=== PATIENT | female | born 1940 | race Caucasian/White ===

== ENCOUNTER 2017-11-13 06:13 | Emergency (ER) | payer OTHER, MEDICARE ==
[2017-11-13 06:20] VITALS: TEMP 98.5; BMI 33.9
[2017-11-13] MEDS ORDERED: methylPREDNISolone NA SUCC 125 MG/2 ML VIAL IVPUSH ONE (06:21)
--- NOTE | 2017-11-13 06:21 | PDOC ---
History of Present Illness - General Chief Complaint: Allergic Reaction Stated Complaint: LIP SWELLING Time Seen by Provider: 11/13/17 06:17 History Source: Patient Exam Limitations: No Limitations - History of Present Illness Initial Comments: 11/13/17 06:24 This is a 77-year-old female comes in with her for evaluation of lip swelling. Patient has an ALLERGY to aspirin and said that she took an Aleve prior to going to bed last night. Patient said that she woke up this morning with her lips significantly swollen. Patient denies any swelling to her tongue. Patient denies any sensation of her throat closing. Patient denies any shortness of breath, abdominal pain rashes or itching. PAST MEDICAL HISTORY: no significant history PAST SURGICAL HISTORY: no significant history FAMILY HISTORY: no pertinant history SOCIAL HISTORY: Pt lives with family and is employed. MEDICATIONS: reviewed ALLERGIES: As per nursing notes Review of Systems General: No fevers or chills, no weakness, no weight loss HEENT: No change in vision. No sore throat,. No ear pain, angioedema of lips CardioVascular: No chest pain or shortness of breath Respiratory:No cough, or wheezing. Gastrointestinal: no nausea, vomitting, diarrhea or constipation, No rectal bleeding Genitourinary: No dysuria, hematuria, or frequency Musculoskeletal: No joint or muscle pain or swelling Neurologic: No headache, vertigo, dizziness or loss of consciousness Psychiatric: nor depression Skin: No rashes or easy bruising Endocrine: no increased thirst or abnormal weight change Allergic: no skin or latex allergy All other systems reviewed and normal Exam: General: Well-nourished well-developed individual, no acute distress HEENT: Throat: Normal, tonsils normal, no erythema or exudate, there is marked angioedema of the lips but no angioedema of the tongue or oropharynx. Neck: Supple, no meningeal signs, no lymphadenopathy Eyes::Pupils equal reactive and round, extraocular motion intact Chest: Nontender to palpation Cardiac: S1-S2 normal, regular rate and rhythm, no murmurs rubs or gallops Respiratory: Lungs clear to auscultation bilateral Abdomen: Soft, nondistended, normal bowel sounds, nontender to palpation diffusely Extremities: Warm, dry, no cyanosis, clubbing, or edema Skin: No rashes Neuro: Alert and oriented x3, CN II - XII intact, nonfocal exam with normal strength, normal sensation, normal reflexes, normal gait, Psych: Normal mood and affect Medical decision making this is a 77-year-old female with angioedema of the lips but does not involve tongue or oropharynx. Patient given Solu-Medrol and Benadryl. Will observe patient to make sure there is no progression and discharge once improved. 07:00 Care of this patient was transferred to Dr. Sinha at 7 AM Case discussed in detail with oncoming Emergency Physician including history, physical exam and ancillary studies. Oncoming Emergency Physician has assumed care for the patient and will complete the evaluation and treatment. Patient is aware of the plan. Pt is clinically unchanged and stable. Past History - Past Medical History Allergies/Adverse Reactions: Allergies Allergy/AdvReac Type Severity Reaction Status Date / Time aspirin Allergy Severe Difficulty Verified 03/30/13 17:38 Breathing Home Medications: Ambulatory Orders Levothyroxine [Synthroid] 88 mcg PO DAILY 03/30/13 Trazodone HCl 100 mg PO HS 03/30/13 Tamoxifen Citrate 20 mg PO tablet 01/08/15 Bupropion HCl [Wellbutrin Xl -] 150 mg PO DAILY 11/13/17 Solifenacin Succinate [Vesicare -] 5 mg PO DAILY 11/13/17 Cancer: Yes (BILATERAL BREASTS) Thyroid Disease: Yes - Suicide/Smoking/Psychosocial Hx Smoking Status: No Smoking History: Never smoked Number of Cigarettes Smoked Daily: 0 *DC/Admit/Observation/Transfer Diagnosis at time of Disposition: Angioedema Qualifiers: Encounter type: initial encounter Qualified Code(s): T78.3XXA - Angioneurotic edema, initial encounter - Discharge Dispostion Condition at time of disposition: Stable - Referrals Referrals: Juan Jose Wilson [Primary Care Provider] - - Patient Instructions - Post Discharge Activity
--- NOTE | 2017-11-13 07:16 | PDOC ---
*Physical Exam - Vital Signs Last Vital Signs Temp Pulse Resp BP Pulse Ox 98.5 F 73 16 155/66 98 11/13/17 06:17 11/13/17 06:17 11/13/17 06:17 11/13/17 06:17 11/13/17 06:17 ED Treatment Course - Medications Given in the ED: ED Medications Discontinued Medications Generic Name Dose Route Start Last Admin Trade Name Madai PRN Reason Stop Dose Admin Diphenhydramine HCl 50 mg 11/13/17 06:21 11/13/17 06:31 Benadryl Injection - IVPUSH 11/13/17 06:22 50 mg ONCE ONE Administration Methylprednisolone Sodium Succinate 125 mg 11/13/17 06:21 11/13/17 06:31 Solu-Medrol - IVPUSH 11/13/17 06:22 125 mg ONCE ONE Administration Medical Decision Making - Medical Decision Making 11/13/17 08:21 Assumed care of patient at 7am shift change. She presented with angioedema, unclear etiology, no prior similar symptoms. She has aspirin allergy, took an NSAID, however, she has taken them without a reaction in the past. She has upper and lower lip swelling, unchanged from 7am. No airway compromise. Will cont to monitor. 11/13/17 10:22 Pt reassessed. Some improvement noted in the lips. No airway involvement. Stable for DC home. F/u with PMD. *DC/Admit/Observation/Transfer Diagnosis at time of Disposition: Angioedema Qualifiers: Encounter type: initial encounter Qualified Code(s): T78.3XXA - Angioneurotic edema, initial encounter - Discharge Dispostion Disposition: HOME Condition at time of disposition: Improved Admit: No - Referrals Referrals: Juan Jose Wilson [Primary Care Provider] - - Patient Instructions - Post Discharge Activity
[2017-11-13 09:47] VITALS: BP 167/95; PULSE 86
== END 2017-11-13 10:40 | disposition home or self-care (01) ==
LOC: FER 06:13
PROC: 3E0333Z Introduction of Anti-inflammatory into Peripheral Vein, Percutaneous Approach (ICD-10-PCS; principal; 2017-11-13)
PROC: 3E033GC Introduction of Other Therapeutic Substance into Peripheral Vein, Percutaneous Approach (ICD-10-PCS; 2017-11-13)
DX: T78.3XXA Angioneurotic edema, initial encounter (principal)
CPT/HCPCS: 96374; 96375; 99282-25

== ENCOUNTER 2017-11-26 06:25 | Emergency (ER) | payer OTHER, MEDICARE ==
[2017-11-26 06:34] VITALS: PULSE 76; TEMP 98.4; BMI 34.3
--- NOTE | 2017-11-26 07:08 | PDOC ---
History of Present Illness - General Chief Complaint: Chest Pain Stated Complaint: CHEST/ABD PAIN Time Seen by Provider: 11/26/17 06:49 History Source: Patient Exam Limitations: No Limitations - History of Present Illness Initial Comments: 11/26/17 06:55 This is a 77-year-old female with history of high cholesterol, hypothyroid, depression who woke up this morning approximately 5 AM with substernal chest pain with radiation to the right. Patient denied any associated symptoms of nausea, diaphoresis, shortness of breath. Patient said the pain persisted for about an hour so she took a Zantac without relief and came into the emergency room. Patient said that on her way to the emergency room that the pain did improve. Patient said that the pain is almost completely resolved. Patient denies any cardiac risk factors other than the high cholesterol and a father who had cardiac disease. Patient said she has never been told she has coronary artery disease. Patient was never smoker. PAST MEDICAL HISTORY: no significant history PAST SURGICAL HISTORY: no significant history FAMILY HISTORY: no pertinant history SOCIAL HISTORY: Pt lives with family and is employed. MEDICATIONS: reviewed ALLERGIES: As per nursing notes Review of Systems General: No fevers or chills, no weakness, no weight loss HEENT: No change in vision. No sore throat,. No ear pain CardioVascular: + chest pain, no shortness of breath Respiratory:No cough, or wheezing. Gastrointestinal: no nausea, vomitting, diarrhea or constipation, No rectal bleeding Genitourinary: No dysuria, hematuria, or frequency Musculoskeletal: No joint or muscle pain or swelling Neurologic: No headache, vertigo, dizziness or loss of consciousness Psychiatric: nor depression Skin: No rashes or easy bruising Endocrine: no increased thirst or abnormal weight change Allergic: no skin or latex allergy All other systems reviewed and normal Exam: General: Well-nourished well-developed individual, no acute distress HEENT: Throat: Normal, tonsils normal, no erythema or exudate Neck: Supple, no meningeal signs, no lymphadenopathy Eyes::Pupils equal reactive and round, extraocular motion intact Chest: Nontender to palpation Cardiac: S1-S2 normal, regular rate and rhythm, no murmurs rubs or gallops Respiratory: Lungs clear to auscultation bilateral Abdomen: Soft, nondistended, normal bowel sounds, nontender to palpation diffusely Extremities: Warm, dry, no cyanosis, clubbing, or edema Skin: No rashes Neuro: Alert and oriented x3, CN II - XII intact, nonfocal exam with normal strength, normal sensation, normal reflexes, normal gait, Psych: Normal mood and affect 11/26/17 07:00 Care of this patient transferred to Dr. Burns at 7 AM Case discussed in detail with oncoming Emergency Physician including history, physical exam and ancillary studies. Oncoming Emergency Physician has assumed care for the patient and will complete the evaluation and treatment. Patient is aware of the plan. Pt is clinically unchanged and stable. Past History - Past Medical History Allergies/Adverse Reactions: Allergies Allergy/AdvReac Type Severity Reaction Status Date / Time aspirin Allergy Severe Difficulty Verified 03/30/13 17:38 Breathing Home Medications: Ambulatory Orders Levothyroxine [Synthroid -] 88 mcg PO DAILY 03/30/13 Trazodone HCl 100 mg PO HS 03/30/13 Tamoxifen Citrate 20 mg PO DAILY tablet 01/08/15 Bupropion HCl [Wellbutrin Xl -] 150 mg PO DAILY 11/13/17 Solifenacin Succinate [Vesicare -] 5 mg PO DAILY 11/13/17 Desvenlafaxine Succinate [Pristiq] 50 mg PO DAILY 11/26/17 Rosuvastatin Calcium [Crestor] 5 mg PO DAILY 11/26/17 Cancer: Yes (BILATERAL BREASTS) COPD: No GI Disorders: Yes (GERD) Hypercholesterolemia: Yes Psychiatric Problems: Yes Thyroid Disease: Yes - Suicide/Smoking/Psychosocial Hx Smoking Status: No Smoking History: Never smoked Number of Cigarettes Smoked Daily: 0 *Physical Exam - Vital Signs Last Vital Signs Temp Pulse Resp BP Pulse Ox 98.4 F 76 16 155/56 98 11/26/17 06:30 11/26/17 06:30 11/26/17 06:30 11/26/17 07:23 11/26/17 06:30 ED Treatment Course - LABORATORY CBC & Chemistry Diagram: 11/26/17 07:14 11/26/17 07:14 - ADDITIONAL ORDERS Additional order review: 11/26/17 07:14 RBC 4.23 MCV 90.4 MCHC 34.9 RDW 12.4 MPV 8.8 Neutrophils % 67.6 Lymphocytes % 20.0 Monocytes % 9.8 Eosinophils % 1.9 Basophils % 0.7 - RADIOLOGY Radiology Studies Ordered: Category Date Time Status CHEST X-RAY PORTABLE* [RAD] Stat Radiology 11/26/17 06:54 Completed *DC/Admit/Observation/Transfer Diagnosis at time of Disposition: Chest pain - Discharge Dispostion Disposition: HOME Condition at time of disposition: Stable - Referrals - Patient Instructions Printed Discharge Instructions: DI for Chest Pain Additional Instructions: Today you were evaluated for chest pain. The cardiac enzyme testing is normal. The other blood tests were also normal. You are advised to follow-up with Dr. Wilson for further evaluation. The exact cause of the chest pain is unclear at this time. Dr. Wilson may want to do further testing such as a stress test or an echocardiogram. If you get recurrent symptoms, return to the emergency department immediately. - Post Discharge Activity
[2017-11-26 07:24] VITALS: BP 155/56
[2017-11-26 07:36] LABS: BASO % 0.7 % (0-2.0); EOS % 1.9 % (0-4.5); HEMATOCRIT 38.2 % (32.4-45.2); HEMOGLOBIN 13.3 GM/dl (10.7-15.3); MCH 31.5 pg (25.7-33.7); MCHC 34.9 g/dl (32.0-36.0); MEAN CELL VOLUME 90.4 fl (80-96); MEAN PLT VOLUME 8.8 fl (7.5-11.1); MONO % 9.8 % (3.8-10.2); NEUT % 67.6 % (42.8-82.8); PLATELET COUNT 249 K/MM3 (134-434); RBC 4.23 M/mm3 (3.60-5.2); RDW 12.4 % (11.6-15.6); WHITE BLOOD COUNT 5.2 K/mm3 (4.0-10.8)
[2017-11-26 07:45] LABS: ALBUMIN 3.6 g/dl (3.5-5.0); ALK PHOS 58 U/L (32-92); ANION GAP 6 (8-16); BILIRUBIN,TOTAL 0.4 mg/dl (0.2-1.0); BLOOD UREA NITROGEN 25 mg/dl (7-18); CALCIUM 9.2 mg/dl (8.4-10.2); CHLORIDE 106 mmol/L (98-107); CO2 26 mmol/L (22-28); CREATININE 0.7 mg/dl (0.6-1.3); GLUCOSE,RANDOM 111 mg/dl (74-106); POTASSIUM 4.4 mmol/L (3.5-5.1); SGOT/AST 27 U/L (10-42); SGPT/ALT 21 U/L (10-40); SODIUM 138 mmol/L (136-145)
[2017-11-26 08:24] LABS: LIPASE 131 U/L (73-393)
[2017-11-26 09:09] LABS: URINE APPEARANCE Clear; URINE BILIRUBIN Negative (NEGATIVE); URINE GLUCOSE (UA) Negative (NEGATIVE); URINE KETONE Negative (NEGATIVE); URINE LEUK ESTERASE Negative (NEGATIVE); URINE NITRITE Negative (NEGATIVE); URINE PROTEIN Negative (NEGATIVE); URINE UROBILINOGEN 0.2 (0.2-1.0)
[2017-11-26 09:12] LABS: URINE BLOOD Trace-intact (NEGATIVE); URINE COLOR AMBER
[2017-11-26 09:32] LABS: EPI CELLS RARE /HPF; URINE RBC 0-1 /hpf (0-3)
--- NOTE | 2017-11-26 11:07 | PDOC ---
*Physical Exam - Vital Signs Last Vital Signs Temp Pulse Resp BP Pulse Ox 98.4 F 76 16 155/56 98 11/26/17 06:30 11/26/17 06:30 11/26/17 06:30 11/26/17 07:23 11/26/17 06:30 ED Treatment Course - LABORATORY CBC & Chemistry Diagram: 11/26/17 07:14 11/26/17 07:14 - ADDITIONAL ORDERS Additional order review: Laboratory Results 11/26/17 11/26/17 11/26/17 10:00 08:38 07:14 Sodium Potassium Chloride Carbon Dioxide Anion Gap BUN Creatinine Creat Clearance w eGFR Random Glucose Calcium Total Bilirubin AST ALT Alkaline Phosphatase Creatine Kinase 123 Troponin I < 0.03 Total Protein Albumin Lipase Urine Color Mariama Urine Appearance Clear Urine pH 5.0 Ur Specific Naselle 1.015 Urine Protein Negative Urine Glucose (UA) Negative Urine Ketones Negative Urine Blood Trace-intact H Urine Nitrite Negative Urine Bilirubin Negative Urine Urobilinogen 0.2 Ur Leukocyte Esterase Negative Urine RBC 0-1 Ur Epithelial Cells Rare 11/26/17 11/26/17 07:14 07:14 Sodium 138 Potassium 4.4 Chloride 106 Carbon Dioxide 26 Anion Gap 6 L BUN 25 H Creatinine 0.7 Creat Clearance w eGFR > 60 Random Glucose 111 H Calcium 9.2 Total Bilirubin 0.4 AST 27 ALT 21 Alkaline Phosphatase 58 Creatine Kinase Troponin I < 0.03 Total Protein 6.0 L Albumin 3.6 Lipase 131 Urine Color Urine Appearance Urine pH Ur Specific Naselle Urine Protein Urine Glucose (UA) Urine Ketones Urine Blood Urine Nitrite Urine Bilirubin Urine Urobilinogen Ur Leukocyte Esterase Urine RBC Ur Epithelial Cells 11/26/17 07:14 RBC 4.23 MCV 90.4 MCHC 34.9 RDW 12.4 MPV 8.8 Neutrophils % 67.6 Lymphocytes % 20.0 Monocytes % 9.8 Eosinophils % 1.9 Basophils % 0.7 Medical Decision Making - Medical Decision Making 11/26/17 11:01 Patient is a 77-year-old woman with a history of hyperlipidemia and a family history of heart disease. She has no other positive risk factors. She is a nonsmoker. She presented today with chest pain radiating to the right. There is no shortness of breath, diaphoresis, or vomiting. The pain resolved after arrival to the ED. The patient took ranitidine prior to coming in. She has a history of GERD and hiatal hernia. On my examination, she denies any further chest discomfort. She is completely asymptomatic. Lungs are clear. Heart is regular rhythm. Abdomen is benign. Extremities are warm and well perfused. Skin is without diaphoresis. Twelve-lead EKG was performed 2. The first EKG shows normal sinus rhythm at a rate of 72 bpm. There is poor R-wave progression from V1 to V4 with transition in V5. There are inferior Q waves without acute ST elevation or depression. There is no old EKG for comparison. Repeat EKG done 2 hours later shows normal sinus rhythm at a rate of 74 with normal axis. The inferior Q waves remain. The anterior R wave progression has normalized, related to lead placement. Serial Troponin 2 is negative. Chest x-ray PA and lateral is unremarkable. Other laboratory studies are normal. Impression: Chest pain of uncertain etiology, ED cardiac workup is negative. I spoke to the patient's primary care practice, Dr. Wilson is being covered by Dr. Sinclair. She advised there is no old EKG available. Patient is asymptomatic. I advised her that further cardiac workup is indicated. She states she will follow-up with Dr. Wilson and agrees with the plan. She further states she will return immediately to the emergency department should recurrent symptoms develop. She cannot take aspirin because she gets severe anaphylactic reaction to aspirin. *DC/Admit/Observation/Transfer Diagnosis at time of Disposition: Chest pain Qualifiers: Chest pain type: unspecified Qualified Code(s): R07.9 - Chest pain, unspecified - Discharge Dispostion Disposition: HOME Condition at time of disposition: Stable Admit: No - Referrals - Patient Instructions Printed Discharge Instructions: DI for Chest Pain Additional Instructions: Today you were evaluated for chest pain. The cardiac enzyme testing is normal. The other blood tests were also normal. You are advised to follow-up with Dr. Wilson for further evaluation. The exact cause of the chest pain is unclear at this time. Dr. Wilson may want to do further testing such as a stress test or an echocardiogram. If you get recurrent symptoms, return to the emergency department immediately. - Post Discharge Activity
--- NOTE | 2017-11-28 14:43 | EKG ---
Test Reason : Blood Pressure : / mmHG Vent. Rate : 072 BPM Atrial Rate : 072 BPM P-R Int : 136 ms QRS Dur : 076 ms QT Int : 420 ms P-R-T Axes : 054 076 082 degrees QTc Int : 459 ms NORMAL SINUS RHYTHM POOR R WAVE PROGRESSION Reconfirmed by WEST STARR MD ([id number]) on 11/28/2017 2:45:00 PM Referred By: MD LOONEY Confirmed By:WEST STARR MD
--- NOTE | 2017-11-28 14:44 | EKG ---
Test Reason : Blood Pressure : / mmHG Vent. Rate : 074 BPM Atrial Rate : 074 BPM P-R Int : 136 ms QRS Dur : 084 ms QT Int : 434 ms P-R-T Axes : 080 057 088 degrees QTc Int : 481 ms NORMAL SINUS RHYTHM WHEN COMPARED WITH ECG OF 26-NOV-2017 06:46, NO SIGNIFICANT CHANGE WAS FOUND Confirmed by WEST STARR MD ([id number]) on 11/28/2017 2:44:29 PM Referred By: SJ YOUNG Confirmed By:WEST STARR MD
== END 2017-11-26 11:32 | disposition home or self-care (01) ==
LOC: FER 06:25
DX: R07.9 Chest pain, unspecified (principal); E78.00 Pure hypercholesterolemia, unspecified; E03.9 Hypothyroidism, unspecified; F32.9 Major depressive disorder, single episode, unspecified
CPT/HCPCS: 36415; 71045-TC-FY; 80053; 81003; 81015; 82550; 83690; 84484; 85025; 93005; 99283-25